=== PATIENT | female | born 1955 | race African-American/Black ===

== ENCOUNTER → 2017-10-16 | Outpatient (CLI) | payer MEDICARE, OTHER ==
--- NOTE | 2017-10-16 12:03 | RAD ---
DATE: 10/16/2017 EXAM: BREAST LEFT, MAMMO [facility] DIAG BILAT HISTORY: Palpable lumps within the left breast. COMPARISON: 01/18/2013. This study was interpreted with the benefit of Computerized Aided Detection (CAD). The breast parenchyma shows scattered fibroglandular densities. Breast parenchyma level B. FINDINGS: Digital MLO and CC mammograms of both breasts were obtained. Additionally digital breast tomosynthesis (3D mammography) images of both breasts in the MLO and CC projections were performed. Comparison study is made to the patient's outside mammograms from [place], [place] dated 01/18/2013. The breast parenchyma is composed of scattered fibroglandular densities which can obscure a lesion on mammography (breast density code B). No spiculated mass is seen. No malignant appearing calcification or area of architectural distortion is noted. Digital breast tomosynthesis images demonstrate no spiculated mass or malignant appearing calcification. Since the previous examination there has been no significant interval change. A real-time ultrasound examination of the left breast in the area where the patient feels palpable abnormalities (5:30 o'clock position and the 11 to 1:00 position) was performed. No abnormality is seen within the left breast from the 11 to 1:00 position. Immediately beneath the skin surface at the 5:30 position a oval-shaped anechoic structure is seen with internal echoes. This measures 5 mm in greatest diameter. A tract is seen extending to the skin. This is felt to most likely represent a sebaceous cyst. No additional abnormality is seen. I would recharacterize the patient's mammograms BI-RADS Category 1, negative no mammographic evidence of malignancy with a recommendation for routine yearly screening mammography for follow-up. IMPRESSION: 1. BI-RADS Category 1, negative. There is no mammographic evidence of malignancy. Routine yearly screening mammography is recommended for follow-up. 2. The patient's palpable abnormality within the left breast at the 5:30 position appears to correspond to a 5 mm sebaceous cyst as outlined above. BI-RADS CATEGORY: 1 NEGATIVE RECOMMENDED FOLLOW-UP: 12M 12 MONTH FOLLOW-UP PQRS compliance statement: Patient information was entered into a reminder system with a target due date 10/16/2018 for the next mammogram. Mammography is a sensitive method for finding small breast cancers, but it does not detect them all and is not a substitute for careful clinical examination. A negative mammogram does not negate a clinically suspicious finding and should not result in delay in biopsying a clinically suspicious abnormality. "Our facility is accredited by the [employer] Mammography Program."
== END | disposition home or self-care (01) ==
LOC: MAMMO 09:28
PROVIDERS: ATTEND Family Medicine
DX: N63.20 Unspecified lump in the left breast, unspecified quadrant (principal); R92.8 Other abnormal and inconclusive findings on diagnostic imaging of breast
CPT/HCPCS: 76641; 77066; G0279; 77062